=== PATIENT | male | born 1980 | race American Indian/Alaskan Native ===

== ENCOUNTER 2017-08-01 14:53 | Emergency (ER) | payer OTHER ==
[~2017-08-01] VITALS: Ht 185.4 cm; Wt 70.3 kg
[2017-08-01 16:38] VITALS: BP 122/80; TEMP 98
== END 2017-08-01 16:38 | disposition home or self-care (01) ==
LOC: ED 14:53
DX: T63.441A Toxic effect of venom of bees, accidental (unintentional), initial encounter (principal)
CPT/HCPCS: 96372; 99282; J1100